=== PATIENT | male | born 1960 | race Caucasian/White ===

== ENCOUNTER 2023-10-21 11:21 | Observation (INO) ==
[2023-10-21 12:19] LABS: Hematocrit 45.8 % (38-53); Mean Corpuscular Hemoglobin 29.9 pg (27-33); Mean Corpuscular Hgb Conc 32.8 g/dL (31-36); Mean Corpuscular Volume 91.1 fL (80-97); Red Blood Count 5.03 10^6/uL (4.06-5.63); Red Cell Distribution Width 14.2 % (12-17); White Blood Count 13.4 10^3/uL (3.6-10.2)
[2023-10-21 12:21] LABS: Rapid Strep Molecular Negative (Negative)
[2023-10-21] MEDS ORDERED: Azithromycin 500 mg/250 ml NS 500 MG/250 ML BAG IVPB ONE (12:22)
[2023-10-21] MEDS ORDERED: cefTRIAXone 1 gm/50 mL D5W 1 GM/50 ML BAG IV ONE (12:22)
[2023-10-21 12:42] LABS: Albumin 4.2 g/dL (3.2-5.2); Albumin/Globulin Ratio 2.5 (1-3); C Reactive Protein 207.71 mg/L (<8.01); Calcium 9.3 mg/dL (8.6-10.3); Creatinine, Serum 1.29 mg/dL (0.67-1.17); Globulin 1.7 g/dL (2-4); Potassium 4.1 mmol/L (3.5-5.0); Total Bilirubin 2.9 mg/dL (0.2-1.0); Total Protein 5.9 g/dL (6.4-8.9); eGFR CKD-EPI 61.5 (>60)
[2023-10-21 12:47] LABS: ABS Basophils 0.1 10^3/uL (0.0-0.1); ABS Lymphocytes 0.2 10^3/uL (1.0-4.8); ABS Monocytes 0.7 10^3/uL (0.0-1.1); ABS Neutrophils 12.4 10^3/uL (1.5-7.6); ABS Nucleated RBC 0.04 10^3/ul; Lymphocyte % 1.3 %; Nucleated Red Blood Cells % 0.3 %/100WBC (0.0-0.8); Platelet Count Platelets clumped. 10^3/uL (150-450)
[2023-10-21] MEDS ORDERED: guaiFENesin 100 mg/5 ml LIQ unit dose cup PO ONE (13:01)
[2023-10-21 13:45] LABS: High Sensitivity Troponin 1 Hr 47 pg/mL (<20)
[2023-10-21 14:54] LABS: Urine Appearance Clear; Urine Bilirubin Negative (Negative); Urine Blood Negative (Negative); Urine Color Amber; Urine Glucose 3+(>=500 mg/dL) (Negative); Urine Ketones Negative (Negative); Urine Nitrite Negative (Negative); Urine Protein 1+(30 mg/dL) (Negative); Urine Specific Gravity 1.022 (1.002-1.030); Urine Urobilinogen Negative (Negative)
[2023-10-21 14:57] LABS: Urine Bacteria Absent (Absent); Urine Red Blood Cell Trace(0-2/hpf) (Absent); Urine Squamous Epithelial Cell Present (Absent); Urine White Blood Cell Absent (Absent)
[2023-10-21] MEDS: CMC:DAPAGLIFLOZIN 10 MG TAB (NF) PO SCH (17:29)
[2023-10-21] MEDS: Enoxaparin 40 MG/0.4 ML SYR SUBCUT SCH (22:47)
[2023-10-21] MEDS: CMC:Epleronone 25 mg TAB (NF) PO SCH (22:55)
[2023-10-21] MEDS: Albuterol 2.5mg/3 ml (0.083%) NEB.SOLN INH PRN (22:59)
[2023-10-22 07:23] LABS: Calcium 8.8 mg/dL (8.6-10.3); Creatinine, Serum 1.36 mg/dL (0.67-1.17); eGFR CKD-EPI 57.8 (>60)
[2023-10-22 07:49] LABS: ABS Eosinophils 0.1 10^3/uL (0.0-0.5); ABS Lymphocytes 0.5 10^3/uL (1.0-4.8); ABS Monocytes 0.8 10^3/uL (0.0-1.1); ABS Neutrophils 9.8 10^3/uL (1.5-7.6); ABS Nucleated RBC 0.02 10^3/ul; Eosinophil % 0.5 %; Hemoglobin 14.3 g/dL (13.2-16.3); Lymphocyte % 4.3 %; Mean Corpuscular Hemoglobin 30.4 pg (27-33); Mean Corpuscular Hgb Conc 33.3 g/dL (31-36); Mean Corpuscular Volume 91.3 fL (80-97); Nucleated Red Blood Cells % 0.2 %/100WBC (0.0-0.8); Platelet Count 80 10^3/uL (150-450); Red Blood Count 4.72 10^6/uL (4.06-5.63); Red Cell Distribution Width 14.4 % (12-17); White Blood Count 11.2 10^3/uL (3.6-10.2)
[2023-10-22] MEDS ORDERED: Cholecalciferol (VIT D3) 1,000 unit TAB PO SCH (09:00)
[2023-10-22] MEDS: Albuterol 2.5mg/3 ml (0.083%) NEB.SOLN INH PRN (10:12)
[2023-10-22] MEDS: CMC:Epleronone 25 mg TAB (NF) PO SCH ×2 (10:43→21:23)
[2023-10-22] MEDS: CMC:DAPAGLIFLOZIN 10 MG TAB (NF) PO SCH (10:43)
[2023-10-22] MEDS: cefTRIAXone 2 gm/50 mL D5W 2 GM/50 ML BAG IV SCH (11:11)
[2023-10-22] MEDS ORDERED: Ondansetron 4 mg VIAL 2 MG/ML 2 ml VIAL IV PRN (17:05)
[2023-10-22] MEDS: Enoxaparin 40 MG/0.4 ML SYR SUBCUT SCH (21:25)
[2023-10-22] MEDS ORDERED: Albuterol 2.5mg/3 ml (0.083%) NEB.SOLN INH PRN (23:04)
[2023-10-23 07:51] LABS: ABS Eosinophils 0.1 10^3/uL (0.0-0.5); ABS Lymphocytes 0.3 10^3/uL (1.0-4.8); ABS Monocytes 0.7 10^3/uL (0.0-1.1); ABS Neutrophils 11.4 10^3/uL (1.5-7.6); ABS Nucleated RBC 0.01 10^3/ul; Eosinophil % 0.8 %; Hemoglobin 14.3 g/dL (13.2-16.3); Lymphocyte % 2.4 %; Mean Corpuscular Hemoglobin 30.1 pg (27-33); Mean Corpuscular Hgb Conc 33.2 g/dL (31-36); Mean Corpuscular Volume 90.8 fL (80-97); Nucleated Red Blood Cells % 0.1 %/100WBC (0.0-0.8); Platelet Count 109 10^3/uL (150-450); Red Blood Count 4.73 10^6/uL (4.06-5.63); Red Cell Distribution Width 14.4 % (12-17); White Blood Count 12.5 10^3/uL (3.6-10.2)
[2023-10-23 08:10] LABS: Calcium 9.1 mg/dL (8.6-10.3); Creatinine, Serum 1.5 mg/dL (0.67-1.17); Magnesium 2.3 mg/dL (1.9-2.7); Potassium 4.5 mmol/L (3.5-5.0); eGFR CKD-EPI 51.3 (>60)
[2023-10-23] MEDS ORDERED: guaiFENesin 100 mg/5 ml LIQ unit dose cup PO PRN (09:41)
[2023-10-23] MEDS ORDERED: Albuterol/Ipratropium NEB.SOL (2.5/0.5 MG) 3 ML NEB.SOLN INH ONE ×2 (09:42→11:31)
[2023-10-23] MEDS: CMC:Epleronone 25 mg TAB (NF) PO SCH (10:40)
[2023-10-23] MEDS: CMC:DAPAGLIFLOZIN 10 MG TAB (NF) PO SCH (10:42)
[2023-10-23] MEDS: cefTRIAXone 2 gm/50 mL D5W 2 GM/50 ML BAG IV SCH (11:00)
[2023-10-23 11:18] VITALS: BP 124/76
== END 2023-10-23 15:15 | disposition home or self-care (01) ==
LOC: EDHOLD 11:21 → ED 11:21 → MEDTELE 15:02
PROVIDERS: ADMIT Student in an Organized Health Care Education/Training Program; ATTEND Student in an Organized Health Care Education/Training Program

== ENCOUNTER 2024-07-24 07:25 | Observation (INO) ==
[2024-07-24 08:59] LABS: Urine Appearance Clear; Urine Bilirubin Negative (Negative); Urine Blood Negative (Negative); Urine Color Colorless; Urine Glucose 3+ (>=300 mg/dL) (Negative); Urine Ketones Negative (Negative); Urine Nitrite Negative (Negative); Urine Protein Negative (Negative); Urine Specific Gravity 1.006 (1.002-1.030); Urine Urobilinogen Negative (Negative)
[2024-07-24 09:00] LABS: ABS Eosinophils 0.1 10^3/uL (0.0-0.5); ABS Lymphocytes 0.6 10^3/uL (1.0-4.8); ABS Monocytes 0.6 10^3/uL (0.0-1.1); ABS Neutrophils 7.7 10^3/uL (1.5-7.6); Eosinophil % 1.6 %; Hematocrit 47.1 % (38-53); Hemoglobin 15.7 g/dL (13.2-16.3); Lymphocyte % 6.1 %; Mean Corpuscular Hemoglobin 29.8 pg (27-33); Mean Corpuscular Hgb Conc 33.3 g/dL (31-36); Mean Corpuscular Volume 89.3 fL (80-97); Platelet Count 181 10^3/uL (150-450); Red Blood Count 5.27 10^6/uL (4.06-5.63); Red Cell Distribution Width 14.3 % (12-17); White Blood Count 9.1 10^3/uL (3.6-10.2)
[2024-07-24 09:09] LABS: Albumin 4.7 g/dL (3.2-5.2); Albumin/Globulin Ratio 2.6 (1-3); Calcium 9.5 mg/dL (8.6-10.3); Creatinine, Serum 1.2 mg/dL (0.67-1.17); Globulin 1.8 g/dL (2-4); Magnesium 2.4 mg/dL (1.9-2.7); Potassium 3.9 mmol/L (3.5-5.0); Total Protein 6.5 g/dL (6.4-8.9); eGFR CKD-EPI 66.7 (>60)
[2024-07-24 09:24] LABS: TSH Ultra Thyroid Stim Horm 1.72 mcIU/mL (0.34-5.60)
[2024-07-24 10:03] LABS: High Sensitivity Troponin 1 Hr 22 pg/mL (<20)
[2024-07-24] MEDS ORDERED: Albuterol 2.5mg/3 ml (0.083%) NEB.SOLN INH PRN (12:23)
[2024-07-24] MEDS ORDERED: Sulfur Hexaflouride MICROSPHR 25 MG VIAL IV PRN (13:16)
[2024-07-24] MEDS ORDERED: Aspirin EC 81 mg TAB.EC (enteric coated) PO SCH (21:00)
[2024-07-24] MEDS: EPLERENONE 25 MG PO SCH (21:41)
[2024-07-24] MEDS: DULoxetine DR 60 mg CAP PO SCH (21:41)
[2024-07-25 05:48] LABS: ABS Basophils 0.1 10^3/uL (0.0-0.1); ABS Eosinophils 0.2 10^3/uL (0.0-0.5); ABS Lymphocytes 0.8 10^3/uL (1.0-4.8); ABS Monocytes 0.8 10^3/uL (0.0-1.1); ABS Neutrophils 8.4 10^3/uL (1.5-7.6); ABS Nucleated RBC 0.01 10^3/ul; Eosinophil % 1.6 %; Hematocrit 42.2 % (38-53); Hemoglobin 13.9 g/dL (13.2-16.3); Lymphocyte % 8.2 %; Mean Corpuscular Hemoglobin 29.4 pg (27-33); Mean Platelet Volume 7.9 fL (7.5-11.2); Nucleated Red Blood Cells % 0.1 %/100WBC (0.0-0.8); Platelet Count 192 10^3/uL (150-450); Red Blood Count 4.74 10^6/uL (4.06-5.63); Red Cell Distribution Width 14.6 % (12-17); White Blood Count 10.3 10^3/uL (3.6-10.2)
[2024-07-25 06:53] LABS: Calcium 8.8 mg/dL (8.6-10.3); Creatinine, Serum 1.23 mg/dL (0.67-1.17); Magnesium 2.4 mg/dL (1.9-2.7); Potassium 3.8 mmol/L (3.5-5.0); eGFR CKD-EPI 64.7 (>60)
[2024-07-25] MEDS: guaiFENesin 100 mg/5 ml LIQ unit dose cup PO SCH (09:13)
[2024-07-25] MEDS: CMC:DAPAGLIFLOZIN 10 MG TAB (NF) PO SCH (09:14)
[2024-07-25] MEDS: Polyethylene Glycol 3350 17 GM PACKET PO SCH (09:14)
[2024-07-25] MEDS: Fluticasone NASAL SPRAY 50MCG 16 gm SPRAY BTL INTRANASAL SCH (09:14)
[2024-07-25 10:14] VITALS: BP 114/73
[2024-07-25] MEDS: Potassium Chlor 20 meq TAB.ER PO ONE (11:23)
== END 2024-07-25 13:30 | disposition home or self-care (01) ==
LOC: ED 07:25 → EDHOLD 07:25 → MEDTELE 19:57
PROVIDERS: ADMIT Hospitalist; ATTEND Hospitalist